=== PATIENT | female | born 1940 ===

== ENCOUNTER 2018-07-13 11:18 | Emergency (ER) | payer OTHER ==
[~2018-07-13] VITALS: Ht 152.4 cm; Wt 69.4 kg
[2018-07-13] MEDS ORDERED: TOPROL XL50 M1 PO (12:11)
[2018-07-13] MEDS ORDERED: SYNTHROID50 MCG PO (12:12)
[2018-07-13] MEDS ORDERED: ACID REDUCER150 MG PO (12:12)
[2018-07-13] MEDS ORDERED: ZOLOFT50 MG PO (12:12)
[2018-07-13] MEDS ORDERED: ASA81 MG PO (12:14)
[2018-07-13] MEDS ORDERED: ATORVASTATIN CA20 MG PO (12:14)
[2018-07-13] MEDS ORDERED: HYDROCHLOROTHIA25 MG PO (12:14)
[2018-07-13] MEDS ORDERED: PLAVIX75 MG PO (12:15)
[2018-07-13] MEDS ORDERED: IBANDRONATE SO150 MG PO (12:16)
[2018-07-13] MEDS ORDERED: HUMALOG100 UNIT/1 SUBCUTANEO (12:16)
[2018-07-13] MEDS ORDERED: AMLODIPINE BESY10 MG PO (12:17)
[2018-07-13] MEDS ORDERED: SYNTHROID75 MCG PO (12:18)
== END 2018-07-13 16:07 | disposition home or self-care (01) ==
LOC: ER 11:18
DX: R42 Dizziness and giddiness (principal); I16.0 Hypertensive urgency; I10 Essential (primary) hypertension

== ENCOUNTER 2020-12-20 17:33 | Emergency (ER) | payer OTHER ==
[~2020-12-20] VITALS: Ht 152.4 cm; Wt 68.0 kg
[~2020-12-20 17:33] MED LIST: ACID REDUCER150 MG PO; AMLODIPINE BESY10 MG PO; ASA81 MG PO; ATORVASTATIN CA20 MG PO; HUMALOG100 UNIT/1 SUBCUTANEO; HYDROCHLOROTHIA25 MG PO; IBANDRONATE SO150 MG PO; PLAVIX75 MG PO; SYNTHROID50 MCG PO; SYNTHROID75 MCG PO; TOPROL XL50 M1 PO; ZOLOFT50 MG PO
== END 2020-12-20 23:52 | disposition home or self-care (01) ==
LOC: ER 17:33
DX: I16.0 Hypertensive urgency (principal); I10 Essential (primary) hypertension

== ENCOUNTER 2022-07-09 16:16 | Emergency (ER) | payer OTHER ==
[~2022-07-09] VITALS: Ht 152.4 cm; Wt 67.6 kg
[2022-07-09] MEDS ORDERED: LETROZOLE2.5 MG PO (16:56)
[2022-07-09] MEDS ORDERED: ELIQUIS5 MG PO (16:56)
== END 2022-07-09 19:54 | disposition home or self-care (01) ==
LOC: ER 16:16
DX: M17.11 Unilateral primary osteoarthritis, right knee (principal); Z88.0 Allergy status to penicillin; E11.9 Type 2 diabetes mellitus without complications; Z79.4 Long term (current) use of insulin; I10 Essential (primary) hypertension